=== PATIENT | male | born 1975 | race Caucasian/White ===

== ENCOUNTER 2017-09-10 11:57 | Emergency (ER) | payer SELFPAY ==
[2017-09-10] MEDS ORDERED: Aspirin 81 mg CHEW TAB* 81 MG TAB.CHEW PO ONE (12:51)
--- NOTE | 2017-09-10 12:58 | ED ---
HPI Chest Pain - HPI Summary HPI Summary: Patient is a [place] resident here for a wine conference reporting left-sided chest pain that radiates to his back over the past 3 days. He has increasing fatigue which is what brought him in today. He reports this pain may last for seconds to minutes and can range from 2-5 out of 10 in severity. Nothing makes it better or worse including positions and food/beverages. Associated symptoms are left-sided arm pain with perceived weakness compared to right. He denies sweats, jaw pain but does experience mild nausea when pain is elevated. No vomiting or diarrhea, no shortness of breath. H/o hyperlipidemia. No personal or fam h/o CVD, SC, etc Smokes socially at times - denies illicit drug use and specifically cocaine Has been drinking alot of ETOH this week for conference. 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 - History of Current Complaint Chief Complaint: EDGeneral Time Seen by Provider: 09/10/17 12:39 Hx Obtained From: Patient Pain Intensity: 3 - Allergy/Home Medications Allergies/Adverse Reactions: Allergies Allergy/AdvReac Type Severity Reaction Status Date / Time No Known Allergies Allergy Verified 09/10/17 12:09 PMH/Surg Hx/FS Hx/Imm Hx Previously Healthy: Yes Endocrine/Hematology History: Denies: Hx Anticoagulant Therapy, Hx Blood Disorders, Hx Thyroid Disease, Hx Anemia, Autoimmune Disease Cardiovascular History: Reports: Hx Hypercholesterolemia Denies: Hx Cardiac Arrest, Hx Congenital Heart Disease, Hx Deep Vein Thrombosis, Hx Hypertension, Hx Rheumatic Fever Respiratory History: Denies: Hx Asthma, Hx Chronic Obstructive Pulmonary Disease (COPD), Hx Pulmonary Embolism GI History: Denies: Hx Cirrhosis, Hx Gastroesophageal Reflux Disease Infectious Disease History: No Infectious Disease History: Reports: Traveled Outside the [place] in Last 30 Days - [place] - Family History Known Family History: Positive: Other - hyperlipidemia - Social History Occupation: Employed Full-time Lives: With Family Hx Substance Use: No Substance Use Type: Reports: None - 2 cups coffee / day Hx Tobacco Use: Yes Smoking Status (MU): Current Some Day Smoker - "socially" Do You Chew or Dip Tobacco: Yes Have You Chewed or Dipped Tobacco in the LAST YEAR: Yes Have You Smoked in the Last Year: Yes Review of Systems Positive: Fatigue Eyes: Negative ENT: Negative Cardiovascular: Negative Positive: Chest Pain. Negative: Palpitations Respiratory: Negative Negative: Shortness Of Breath, Cough Gastrointestinal: Negative Positive: no symptoms reported Musculoskeletal: Negative Skin: Negative Neurological: Negative Psychological: Normal All Other Systems Reviewed And Are Negative: Yes Physical Exam Triage Information Reviewed: Yes Vital Signs On Initial Exam: Initial Vitals Temp Pulse Resp BP Pulse Ox 97.8 F 68 16 140/93 98 09/10/17 12:05 09/10/17 12:05 09/10/17 12:05 09/10/17 12:05 09/10/17 12:05 Vital Signs Reviewed: Yes Appearance: Positive: Well-Appearing, No Pain Distress, Well-Nourished Skin: Positive: Warm, Skin Color Reflects Adequate Perfusion, Dry, Tender, Soft Head/Face: Positive: Normal Head/Face Inspection Eyes: Positive: EOMI ENT: Positive: Normal ENT inspection Neck: Positive: Supple, Nontender Respiratory/Lung Sounds: Positive: Clear to Auscultation, Breath Sounds Present , Other - NTTP. Negative: Rales, Rhonchi, Stridor, Tracheal Deviation, Wheezes , Unable to speak in full sentences, Fatigue Cardiovascular: Positive: Normal, RRR, Pulses are Symmetrical in both Upper and Lower Extremities, S1, S2. Negative: Murmur, Rub, Leg Edema Left, Leg Edema Right - (-) Ivonne's B/L Abdomen Description: Positive: Nontender, No Organomegaly, Soft Bowel Sounds: Positive: Present Musculoskeletal: Positive: Normal, Strength/ROM Intact Neurological: Positive: Normal, Sensory/Motor Intact, Alert, Oriented to Person Place, Time, CN Intact II-III, Reflexes Intact Psychiatric: Positive: Normal Diagnostics - Vital Signs Vital Signs Temp Pulse Resp BP Pulse Ox 09/10/17 12:05 97.8 F 68 16 140/93 98 - Laboratory Result Diagrams: 09/10/17 13:16 09/10/17 13:16 Lab Statement: Any lab studies that have been ordered have been reviewed, and results considered in the medical decision making process. Chest Pain Course/Dx - Course Course Of Treatment: 42-year-old [place] male presents with left-sided chest pain that radiates into his back and feels weaker and left arm compared to right. Associated symptoms of fatigue the past 3 days when this started. His ECG is normal sinus rhythm without ST elevations and at this.... Beats per minute. His labs are also unremarkable for acute pathology in regards to SC, pulmonary embolism, severe dehydration, infection. His chest x-ray is without acute findings. A second troponin was drawn and found to be negative (0.00). Explained to patient that he should have close follow-up with his PCP when he returns to [facility] early this week. Should he develop any danger signs or symptoms in the meantime he'll return to our emergency department. Advised to start an aspirin a day, reduce ETOH intake, stay hydrated and avoid caffeine until advised otherwise by PCP. Discussed w/ Dr. Cardenas. - Diagnoses Provider Diagnoses: Chest pain of unknown etiology Discharge - Sign-Out/Discharge Documenting (check all that apply): Discharge/Admit/Transfer - Discharge Plan Condition: Stable Disposition: HOME Patient Education Materials: Chest Pain (ED) Referrals: No Primary Care Phys,NOPCP [Primary Care Provider] - Additional Instructions: The definitive cause of a left-sided chest pain was not identified today. However, life-threatening pathologies such as a heart attack, pulmonary embolism , dissecting aorta, infection, etc. were ruled out. It is important that you follow up with your primary care physician as soon as you return to [facility]. Call as soon as possible to schedule appointment. You may benefit from a stress test as you have a history of high cholesterol, drinking alcohol and smoking occasionally which can put your heart at risk for injury. Again, your heart appears to be healthy from the studies done here today but more extensive tests may be done to your physician at home. You may take an aspirin 325mg daily until then with food. *If in the meantime you develop return of chest pain, sweating, nausea with vomiting, jaw pain, shortness of breath, return to the emergency department. - Billing Disposition and Condition Condition: STABLE Disposition: Home
[2017-09-10 13:22] LABS: ABS Basophils 0.1 10^3/ul (0-0.2); ABS Eosinophils 0.1 10^3/ul (0-0.6); ABS Lymphocytes 1.5 10^3/ul (1.0-4.8); ABS Monocytes 0.4 10^3/ul (0-0.8); ABS Neutrophils 3.5 10^3/ul (1.5-7.7); ABS Nucleated RBC 0 10^3/ul; Eosinophil % 1.3 % (0-6); Hematocrit 44 % (42-52); Hemoglobin 14.9 g/dl (14.0-18.0); Lymphocyte % 27.2 % (25-47); Mean Corpuscular HGB Conc 34 g/dl (31-36); Mean Corpuscular Hemoglobin 30 pg (27-31); Mean Corpuscular Volume 88 fL (80-94); Mean Platelet Volume 10.2 um3 (7.4-10.4); Nucleated Red Blood Cells % 0; Platelet Count 173 10^3/ul (150-450); Red Blood Count 4.99 10^6/ul (4.00-5.40); Red Cell Distribution Width 13 % (10.5-15); White Blood Count 5.6 10^3/ul (3.5-10.8)
--- NOTE | 2017-09-10 13:26 | RAD ---
Indication: LEFT side intermittent chest pain and back discomfort. History of tobacco use. Comparison: No relevant prior exams available on the [facility] for comparison. Technique: Upright AP 1313 hours Report: Clear lungs and pleural spaces. Negative for pneumothorax. The heart, pulmonary vasculature, and mediastinal contours are unremarkable. Unremarkable osseous structures and soft tissue contours. IMPRESSION: No evidence for acute intrathoracic disease.
[2017-09-10 13:37] LABS: INR 0.82 (0.77-1.02)
[2017-09-10 16:24] VITALS: BP 117/101
== END 2017-09-10 16:35 | disposition home or self-care (01) ==
LOC: ED 11:57
DX: R07.9 Chest pain, unspecified (principal); E78.5 Hyperlipidemia, unspecified; I45.6 Pre-excitation syndrome; F17.200 Nicotine dependence, unspecified, uncomplicated
CPT/HCPCS: 36415; 71045; 80053; 83605; 83735; 84443; 84484; 85025; 85379; 85610; 85730; 93005; 99282; A9270-GY